=== PATIENT | female | born 1995 | race Caucasian/White ===

== ENCOUNTER 2025-05-19 00:24 | Emergency (ER) | payer OTHER ==
[~2025-05-19] VITALS: Ht 157.5 cm; Wt 64.0 kg
[2025-05-19 00:39] VITALS: O2SAT 100
[2025-05-19] MEDS: METOCLOPRAMIDE HCL 10MG/2ML VIAL IM ONE (01:17)
[2025-05-19] MEDS: ACETAMINOPHEN 500MG TABLET PO ONE (01:17)
[2025-05-19] MEDS: KETOROLAC 30MG/ML VIAL IM ONE (02:44)
[2025-05-19 02:45] VITALS: BP 127/85; PULSE 77; RESP 18; TEMP 36.8; O2SAT 100
== END 2025-05-19 02:45 | disposition home or self-care (01) ==
LOC: ER 01:29
DX: R51.9 Headache, unspecified (principal)
CPT/HCPCS: 99285; 70450; 81025; 96372; J1885; J2765